=== PATIENT | female | born 1985 | race African-American/Black ===

== ENCOUNTER 2019-11-07 06:49 | Emergency (ER) | payer OTHER ==
[~2019-11-07] VITALS: Ht 158.8 cm; Wt 68.0 kg
[2019-11-07 06:58] VITALS: Ht 158.8 cm; Wt 68.0 kg
[2019-11-07 07:45] LABS: BASOPHIL % 0.9 % (0-2); PLATELET COUNT 262 x10^3mcL (130-400); RED CELL DISTRIBUTION WIDTH 12.6 % (11.5-14.5)
[2019-11-07 08:16] LABS: CALCIUM 8.4 mg/dL (8.5-10.1); CARBON DIOXIDE 28.6 mmol/L (21-32); CHLORIDE SERUM 104 mmol/L (98-107); CREATININE SERUM 0.8 mg/dL (0.6-1.0); GFR1 > 60 mL/min; GLUCOSE SERUM 89 mg/dL (74-106); POTASSIUM SERUM 3.8 mmol/L (3.5-5.1); SODIUM SERUM 141 mmol/L (136-145)
[2019-11-07 08:22] LABS: ALKALINE PHOSPHATASE 48 U/L (46-116); ALT/SGPT 26 U/L (14-59); AST/SGOT 22 U/L (15-37); BILIRUBIN TOTAL 0.4 mg/dL (0.20-1.00); CHOLESTEROL 170 mg/dL (<200); LIPASE 62 IU/L (73-393); TOTAL PROTEIN, SERUM 7.5 g/dL (6.4-8.2)
[2019-11-07 09:35] LABS: microscopic required? NO
[2019-11-07 09:45] LABS: UA SPECIFIC GRAVITY 1.015 (1.005-1.035); urine erythrocyte NEGATIVE (NEGATIVE)
[2019-11-07 10:04] LABS: AMPHETAMINE QUAL UR NONE DETECTED (See below)
[2019-11-07 11:32] VITALS: BP 129/94
== END 2019-11-07 11:32 | disposition home or self-care (01) ==
LOC: ED 06:49
PROVIDERS: Emergency Medicine
DX: R10.84 Generalized abdominal pain (principal); F12.20 Cannabis dependence, uncomplicated
CPT/HCPCS: J1885; J7030